=== PATIENT | male | born 1985 | race Caucasian/White ===

== ENCOUNTER 2017-01-21 07:46 | Outpatient (CLI) | payer OTHER | END 2017-01-21 07:47 | disposition home or self-care (01) | DX: M75.41 Impingement syndrome of right shoulder (principal); M75.91 Shoulder lesion, unspecified, right shoulder ==

== ENCOUNTER 2018-04-27 09:32 | Outpatient (CLI) | payer OTHER ==
[2018-04-27 13:13] LABS: BASOPHILS % (AUTO) 0.4 %; EOSINOPHILS # (AUTO) 0.1 10^3/uL (0.0-0.7); EOSINOPHILS % (AUTO) 0.7 %; LYMPHOCYTES # (AUTO) 1.6 10^3/uL (1.5-3.5); LYMPHOCYTES % (AUTO) 21.5 %; MEAN CORPUSCULAR HEMOGLOBIN 27.7 pg (27.0-31.0); MEAN CORPUSCULAR HGB CONC 32.9 g/dL (32.0-36.0); MEAN CORPUSCULAR VOLUME 84.2 fL (80.0-94.0); MEAN PLATELET VOLUME 9.1 fL (7.4-11.4); MONOCYTES # (AUTO) 0.8 10^3/uL (0.0-1.0); MONOCYTES % (AUTO) 10.6 %; NEUTROPHILS % (AUTO) 66.8 %; PLT - PLATELET COUNT 212 10^3/uL (130-450); RED BLOOD COUNT 5.05 10^6/uL (4.70-6.10); RED CELL DISTRIBUTION WIDTH 13.1 % (12.0-15.0); WHITE BLOOD COUNT 7.4 x10^3/uL (4.8-10.8)
[2018-04-27 13:39] LABS: ALBUMIN 4.2 g/dL (3.2-5.5); ALBUMIN/GLOBULIN RATIO 1.3 (1.0-2.2); ALKALINE PHOSPHATASE 57 IU/L (42-121); ALT ALANINE AMINOTRANSFERASE 22 IU/L (10-60); AST ASPARTATE AMINOTRANSFERASE 23 IU/L (10-42); BILIRUBIN,TOTAL 0.8 mg/dL (0.2-1.0); BUN - BLOOD UREA NITROGEN 27 mg/dL (6-20); CALCIUM 9.6 mg/dL (8.5-10.3); CARBON DIOXIDE - CO2 29 mmol/L (21-32); CHLORIDE 104 mmol/L (101-111); CREATININE 0.9 mg/dL (0.6-1.2); GFR - MDRD 97 (>89); GLUCOSE 100 mg/dL (70-100); SODIUM 140 mmol/L (135-145); TOTAL PROTEIN 7.4 g/dL (6.7-8.2)
== END 2018-04-27 09:33 | disposition home or self-care (01) ==
LOC: LAB.WCP 09:32
PROVIDERS: ATTEND Family Medicine
DX: R53.83 Other fatigue (principal)
CPT/HCPCS: 36415; 80053; 84443; 85025

== ENCOUNTER 2020-06-10 12:44 | Outpatient (CLI) | payer OTHER ==
--- NOTE | 2020-06-10 14:12 | XRAY Report ---
PROCEDURE: Lumbar Spine Complete INDICATIONS: RADICULOPATHY, LUMBAR REGION TECHNIQUE: 5 views of the lumbar spine were acquired. COMPARISON: None. FINDINGS: Bones: 5 [id number] vertebrae are present. There is with trace retrolithesis of L2 on L3, L3 o n L4, L4 on L5 and L5 on S1. No vertebral body compression fractures. No suspicious bony lesions. Moderate to severe foraminal narrowing at L5-S1. Soft tissues: Overlying bowel gas pattern is normal. No suspicious soft tissue calcifications. IMPRESSION: Moderate to severe foraminal narrowing at L5-S1. Reviewed by: Ericka Perez MD on 06/10/2020 2:11 PM PDT Approved by: Ericka Perez MD on 06/10/2020 2:11 PM PDT Station ID: [id number]
== END 2020-06-10 12:45 | disposition home or self-care (01) ==
LOC: DI 12:44
PROVIDERS: ATTEND Physician Assistant Medical
DX: M48.07 Spinal stenosis, lumbosacral region (principal)
CPT/HCPCS: 72110

== ENCOUNTER 2020-08-11 10:45 | Outpatient (CLI) | payer OTHER ==
--- NOTE | 2020-08-11 11:59 | MRI Report ---
PROCEDURE: Lumbar Spine W/O INDICATIONS: LUMBAR RADICULOPATHY TECHNIQUE: Noncontrast sagittal T1 spin echo and T2 fast echo, sagittal STIR, axial T1 and T2 fast spin echo thr ough the lumbar spine. In cases with scoliosis, additional coronal T2 fast spin echo may be performe d. COMPARISON: Plain films of the lumbar spine dated 06.10.28. FINDINGS: Image quality: Excellent. Alignment and Curvature: 5 lumbar type vertebral bodies are present by plain film. Alignment is mavis l. Bone Marrow: Marrow is of normal overall signal. No acute vertebral body compression fractures. Mi nimal reactive signal within the endplates adjacent to the L3-L4 intervertebral disc. Spinal Cord: Conus medullaris terminates at the upper L1 level. Visualized cord demonstrates normal signal and size. Paraspinous Soft Tissues: No paravertebral masses. T12-L1: Normal in appearance. L1-L2: Normal in appearance. L2-L3: Normal in appearance. L3-L4: Mild disc height loss and desiccation. Mild diffuse disc bulge. Mild facet and ligament flav um hypertrophy. Mild epidural lipomatosis. Mild canal stenosis. Mild bilateral foraminal stenosis. L4-L5: Normal in appearance. L5-S1: Mild bilateral facet hypertrophy. No significant canal, nor foraminal stenosis. IMPRESSION: 1. Mild multilevel canal and foraminal stenoses secondary to disc and facet disease, as well as epidu ral lipomatosis. No neural impingement. Reviewed by: Sophie Huffman MD on 08/11/2020 10:57 AM [place] Approved by: Sophie Huffman MD on 08/11/2020 10:57 AM [facility] Station ID: [id number]
== END 2020-08-11 10:46 | disposition home or self-care (01) ==
LOC: DI 10:45
PROVIDERS: ATTEND Physician Assistant Medical
DX: M51.36 Other intervertebral disc degeneration, lumbar region (principal); M48.061 Spinal stenosis, lumbar region without neurogenic claudication; M47.816 Spondylosis without myelopathy or radiculopathy, lumbar region; M47.817 Spondylosis without myelopathy or radiculopathy, lumbosacral region; E88.2 Lipomatosis, not elsewhere classified
CPT/HCPCS: 72148

== ENCOUNTER 2023-01-07 13:10 | Outpatient (CLI) | payer OTHER ==
--- NOTE | 2023-01-07 14:45 | XRAY Report ---
PROCEDURE: Knee 3 View RT INDICATIONS: PAIN IN RT KNEE TECHNIQUE: 3 views of the right knee(s) were acquired. COMPARISON: None. FINDINGS: Bones: No significant degenerative changes. No displaced fracture or dislocation. Soft tissues: No knee joint effusion. No suspicious soft tissue calcifications or masses. IMPRESSION: No acute radiographic abnormality. If there is high concern for further derangement, consider MRI maricarmen luation. Reviewed by: Trae Crane MD on 01/07/2023 2:44 PM PDT Approved by: Trae Crane MD on 01/07/2023 2:44 PM PDT Station ID: [id number]
== END 2023-01-07 13:11 | disposition home or self-care (01) ==
LOC: DI 13:10
PROVIDERS: ATTEND Physician Assistant
DX: M25.561 Pain in right knee (principal)

== ENCOUNTER 2023-01-19 16:29 | Outpatient (CLI) | payer OTHER ==
--- NOTE | 2023-01-20 10:35 | MRI Report ---
PROCEDURE: KNEE WO - RT INDICATIONS: PAIN IN RIGHT KNEE TECHNIQUE: Noncontrast sagittal PD fast spin echo and T2 fast spin echo with fat saturation, sagittal 3-D gradie nt sequence with fat saturation; coronal T1 spin echo and PD fast spin echo with fat saturation, and axial PD fast spin echo with fat saturation through the knee. COMPARISON: None. FINDINGS: Image quality: Excellent. Menisci: Subtle oblique tear involving posterior horn of medial meniscus extending to inferior articu lating surface is seen. The lateral meniscus is intact. The meniscal root ligaments appear intact. Cruciate ligaments: The anterior cruciate ligament is mildly thickened. The posterior cruciate ligam ent is intact. Medial structures: The medial collateral ligament appears intact. The posterior oblique ligament, s emimembranosus tendon insertions, and oblique popliteal ligament, and meniscocapsular junction appear intact. Visualized portions of the pes anserinus tendons appear normal. No abnormal bursal fluid. Lateral structures: The lateral collateral ligament, long and short heads of the biceps femoris tend on appear intact. The popliteus tendon appears normal; the popliteofibular ligament appears intact. Iliotibial band appears normal. Anterior structures: The quadriceps and patellar tendons appear intact. Patellar alignment is mavis l. No femoral trochlear dysplasia or ventral trochlear prominence. No edema in the infrapatellar fa t pad. Bones and cartilage: No bone marrow contusions or fractures. Moderate grade chondromalacia patella i nvolving lateral facet of patella cartilage near apex is seen. Low-grade chondromalacia in medial and lateral femoral tibial compartment is also seen. Joint space: There is small knee joint fluid. There is a tiny Tuttle's cyst. Normal appearing synovi al plicae are incidentally noted. IMPRESSION: 1. Subtle oblique tear involving posterior horn of medial meniscus extending to inferior articulating surface. No focal lateral meniscal tear. 2. Thickened anterior cruciate ligament which may indicate low-grade ACL sprain. No ACL rupture. The PCL is intact. 3. 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 Low-grade danelle dromalacia in medial and lateral femoral tibial compartments. No fracture or dislocation. 4. Small joint effusion and a tiny Tuttle's cyst. No gross loose bodies. Reviewed by: Dhaval Calderón MD on 01/20/2023 10:34 AM PDT Approved by: Dhaval Calderón MD on 01/20/2023 10:34 AM PDT Station ID: [id number]
== END 2023-01-19 16:30 | disposition home or self-care (01) ==
LOC: DI 16:29
PROVIDERS: ATTEND Physician Assistant
DX: S83.241A Other tear of medial meniscus, current injury, right knee, initial encounter (principal); M22.41 Chondromalacia patellae, right knee; M25.461 Effusion, right knee; M71.21 Synovial cyst of popliteal space [Baker], right knee

== ENCOUNTER 2023-01-20 08:00 | Outpatient (CLI) | payer OTHER ==
--- NOTE | 2023-01-20 13:59 | XRAY Report ---
PROCEDURE: Knee 2 View RT INDICATIONS: RIGHT KNEE PAIN, BILAT AP, RIGHT PA TUNNEL ONLY TECHNIQUE: 2 views of the right knee(s) were acquired. COMPARISON: None. FINDINGS: Bones: No fractures or dislocations. No suspicious bony lesions. Doubtful joint space narrowing. Soft tissues: No knee joint effusion. No suspicious soft tissue calcifications or masses. IMPRESSION: No acute bony abnormality. Reviewed by: Prashant Lo on 01/20/2023 1:57 PM PDT Approved by: Prashant Lo on 01/20/2023 1:57 PM PDT Station ID: [id number]
== END 2023-01-20 23:59 | disposition home or self-care (01) ==
LOC: DI.WOS 08:00
PROVIDERS: ATTEND Orthopaedic Surgery
DX: M25.561 Pain in right knee (principal)